=== PATIENT | female | born 1980 | race Caucasian/White ===

== ENCOUNTER 2016-12-24 06:25 | Day surgery (SDC) | payer OTHER ==
[2016-12-24 06:45] LABS: NEG OBC UR NEG; POS OBC UR POS
[2016-12-24] MEDS ORDERED: IV RINGERS,LACTATED 1000ML 1,000 ML IV SCH ×2 (06:45→09:37)
[2016-12-24] MEDS ORDERED: BUPIVACAINE-EPI 0.25%-1:200000 50 ML VIAL. ONE (07:19)
[2016-12-24] MEDS ORDERED: MIDAZOLAM HCL/PF 2 MG/2 ML VIAL. ONE (07:37)
[2016-12-24] MEDS ORDERED: FENTANYL PF 250 MCG/5 ML VIAL. ONE (07:38)
[2016-12-24] MEDS ORDERED: LIDOCAINE 2% 100 MG/5 ML SYRINGE. ONE (07:38)
[2016-12-24] MEDS ORDERED: PROPOFOL 20 ML IV ONE (07:38)
[2016-12-24] MEDS ORDERED: ONDANSETRON PF 4 MG/2 ML VIAL. ONE (07:38)
[2016-12-24] MEDS ORDERED: ROCURONIUM 50 MG/5 ML VIAL. ONE (07:38)
[2016-12-24] MEDS ORDERED: DEXAMETHASONE SOD PHOS 20 MG/5 ML VIAL. ONE (07:38)
[2016-12-24] MEDS ORDERED: ACETAMINOPHEN INTRAVENOUS 100 ML IV ONE (07:58)
[2016-12-24] MEDS ORDERED: DIPHENHYDRAMINE 50 MG/ML VIAL. ONE (08:01)
[2016-12-24] MEDS ORDERED: KETOROLAC 60 MG/2 ML INJ FOR OR. ONE (08:34)
[2016-12-24] MEDS ORDERED: NEOSTIGMINE METHYLSULFATE 5 MG/5 ML SYRINGE. ONE (09:00)
[2016-12-24] MEDS ORDERED: GLYCOPYRROLATE 1 MG/5 ML VIAL. ONE (09:00)
[2016-12-24] MEDS ORDERED: SEVOFLURANE 61 TO 120 MINUTES. IH ONE (09:09)
[2016-12-24] MEDS ORDERED: FENTANYL PF 100 MCG/2 ML VIAL. ONE ×2 (09:14→09:23)
[2016-12-24] MEDS ORDERED: DIPHENHYDRAMINE HCL 25 MG CAPSULE PO PRN (09:15)
[2016-12-24] MEDS ORDERED: DIPHENHYDRAMINE 50 MG/ML VIAL IV PRN (09:15)
[2016-12-24] MEDS ORDERED: HYDROCODONE/APAP 5/325MG TABLET. PO PRN (09:15)
[2016-12-24] MEDS ORDERED: MAG HYDROX/ALUMINUM HYD/SIMETH 30 ML ORAL.SUSP PO PRN (09:15)
[2016-12-24] MEDS ORDERED: CALCIUM CARBONATE 500 MG TAB.CHEW PO PRN (09:15)
[2016-12-24] MEDS ORDERED: SIMETHICONE 80 MG TAB.CHEW PO PRN (09:15)
[2016-12-24] MEDS ORDERED: 0.9 % SODIUM CHLORIDE 10 ML DISP.SYRIN. IV PRN (09:15)
[2016-12-24] MEDS ORDERED: NALOXONE 0.4 MG/ML VIAL. IV PRN (09:15)
[2016-12-24] MEDS: FENTANYL PF 100 MCG/2 ML VIAL. IV PRN ×4 (09:16→09:44)
--- NOTE | 2016-12-24 09:21 | PDOC ---
BRIEF OPERATIVE NOTE Date: Dec 24, 2016 Pre-Op Diagnosis pelvic pain and right ovarian cyst Post-Op Diagnosis endometriosis stage 3 with mild left sided adhesive disease and small left ovarian cyst Procedure Performed operative laparoscopy, vapo endometriosis, lysis of adhesions and drainage of small left ovarian cyst Surgeon Dr. Tiera Alberts Anesthesiologist see anesthesia records Anesthesia Type: General Blood Loss 10cc IV Fluid 1800cc Urine Output 350cc straight cath prior to procedure Specimens Obtained none Findings small left ovarian cyst; very obvious endometriosis right and left pelvic sidewall, under left ovary, scattered in cul de sac, small focus left US ligament and right US ligament several large spots, few on anterior bladder Complications none Additional Remarks [id number] TIERA ALBERTS MD Dec 24, 2016 09:21
[2016-12-24] MEDS ORDERED: HYDR-971 PO (09:31)
[2016-12-24] MEDS ORDERED: IBUP-1007 PO (09:33)
[2016-12-24] MEDS ORDERED: LIDOCAINE 1% 1 ML SYRINGE. ID PRN (09:45)
[2016-12-24] MEDS ORDERED: ONDANSETRON PF 4 MG/2 ML VIAL. IV PRN (09:45)
[2016-12-24] MEDS ORDERED: PROCHLORPERAZINE 10 MG/2 ML VIAL. IV PRN (09:45)
[2016-12-24] MEDS ORDERED: FENTANYL PF 100 MCG/2 ML VIAL. IV PRN (09:45)
[2016-12-24] MEDS ORDERED: MORPHINE SULFATE 2 MG/ML DISP.SYRIN. ONE (09:50)
[2016-12-24] MEDS: MORPHINE SULFATE 2 MG/ML DISP.SYRIN. IV PRN ×4 (09:52→10:23)
[2016-12-24 10:41] VITALS: BP 131/61
--- NOTE | 2016-12-24 12:32 | OP ---
DATE OF SURGERY: 12/24/2016 PREOPERATIVE DIAGNOSES: Pelvic pain and a right ovarian cyst. POSTOPERATIVE DIAGNOSES: A small left ovarian cyst, right ovarian cyst had resolved, but stage 2-3 endometriosis. She had little bit on the anterior bladder mucosa, large focus all over the right uterosacral ligament, small focus on the left uterosacral ligaments, scattered on the posterior cul-de-sac, a small amount on the left side wall, left-sided adhesion. She did have endometriosis on the left abdominal side wall and right abdominal side wall. No significant other adhesions other than these left-sided adhesions just superior to the left ovary and IP ligament, and those were taken down. PROCEDURE: Operative laparoscopy, vaporization of endometriosis, drainage of small left ovarian cyst, and lysis of left-sided adhesions. SURGEON: Tristen Alberts M.D. WARDROBE ATTENDANT: OR personnel. ANESTHESIA: General. ESTIMATED BLOOD LOSS: 10 mL. FLUIDS: 1800 mL of crystalloid. URINE OUTPUT: 350 mL straight cath prior to procedure. SPECIMENS: None. DRAINS AND TUBES: None. COMPLICATIONS: None. DESCRIPTION OF PROCEDURE: This patient was taken to the operating room where general anesthesia was placed. The patient was placed in a dorsolithotomy position in [facility]. The patient's abdomen and vagina were prepped and draped in the normal sterile fashion and a straight cath urine eliciting 350 mL of urine was done prior to starting. At this point, a bivalve speculum was placed in the patient's vagina. A single tooth tenaculum was used to grasp the anterior lip of the cervix. The Valtchev uterine manipulator was placed through the endocervical os, locked on the single tooth tenaculum, and the bivalve speculum was then removed. Top gloves were discarded and changed. Attention was turned to the abdomen where a small infraumbilical skin incision was made over the previous existing scar. A curved Bre was used to dissect through the subcuticular layer to the fascia. After white-balancing the scope and making sure everything was set, the 5-mm Visiport was used to directly enter the abdominal cavity; opening patient pressure was 3 mmHg. Carbon dioxide gas was used to then appropriately insufflate the abdominal cavity to maintain a pressure of 15 mmHg. Direct abdominal placement was confirmed via the laparoscope. The patient was placed in Trendelenburg position. A small 5-mm suprapubic port was placed under direct visualization as well. Initially, with the Maryland looking around revealed the above findings. Due to the location underneath the uterus and then the cul-de-sac and then the uterosacrals of the endometriosis, even though there was not a lot of significant scar tissue and I was able to take down the adhesions with the [place], I could not get it under the uterus without touching things. I did put in a right lower quadrant port as well, 5 mm after transilluminating the abdomen, picking an area that was clear, making a small incision and putting the 5-mm port in without difficulty atraumatically and then going in and using the LigaSure Advance to cauterize the areas in the posterior cul-de-sac and along both uterosacral ligaments, I did get some on the anterior bladder mucosa. After taking down the left side adhesions, there were some other endometrial implants superior to this that were cauterized on the left side. The right side, I found the normal appendix, just over from it, on the side wall, there were a few endometrial implants as well, those were cauterized as well. The right upper quadrant and left upper quadrant appeared grossly normal. Just the abdominal sidewalls with the few lesions that were vaporized and then the adhesions were taken down just superior to the left IP ligament. There was a small serous 1-2 cm cyst on the left ovary. This was easily cauterized with the monopolar tip on the LigaSure Advance and it was drained clear straw-colored fluid, I did place Roberto Carlos over this and Roberto Carlos over the adhesions on the left side as well. Just for good measure after irrigating and making sure everything else looked good, Roberto Carlos was placed over this. Once this was done, the suprapubic port and the right lower quadrant port were taken out under direct visualization. They were both hemostatic. Gas was released from the umbilical port. All three port sites were closed with 4-0 nylon at the level of the skin and injected with a total of 10 mL of 0.25% Marcaine with epinephrine. She was awakened from anesthesia and taken to recovery room in stable condition. TRISTEN ALBERTS MD DR: PATRICK/rah JOB#: [id number] / [id number]
== END 2016-12-24 11:09 | disposition home or self-care (01) ==
LOC: SURG 06:25
PROVIDERS: ATTEND Obstetrics & Gynecology
DX: N83.201 Unspecified ovarian cyst, right side (principal); N80.9 Endometriosis, unspecified; N73.6 Female pelvic peritoneal adhesions (postinfective); Z98.51 Tubal ligation status; Z87.39 Personal history of other diseases of the musculoskeletal system and connective tissue; Z72.89 Other problems related to lifestyle
CPT/HCPCS: 49322; 58662; 81025; C1769; J0131; J1100; J1200; J1885; J2270; J2405; J2704; J2710; J3010; J3490; J7030; J7120; J2250

== ENCOUNTER → 2019-10-18 | Outpatient (CLI) | payer OTHER ==
[~2019-10-18] MED LIST: HYDR-3164 PO; IBUP-1007 PO; OXYC-325 PO
== END | disposition home or self-care (01) ==
LOC: SPEC 14:22
PROVIDERS: ATTEND Obstetrics & Gynecology
DX: Z12.4 Encounter for screening for malignant neoplasm of cervix (principal)
CPT/HCPCS: 88175

== ENCOUNTER 2019-11-01 06:55 | Day surgery (SDC) | payer OTHER ==
[~2019-11-01 06:55] MED LIST changes: -OXYC-325 PO
[2019-11-01] MEDS ORDERED: LIDOCAINE 1% PF 2 ML VIAL. ID PRN (07:00)
[2019-11-01] MEDS ORDERED: ONDANSETRON PF 4 MG/2 ML VIAL. IV PRN (07:00)
[2019-11-01] MEDS ORDERED: fentaNYL PF VIAL 100 MCG/2 ML VIAL IV PRN (07:00)
[2019-11-01] MEDS: IV RINGERS,LACTATED 1000ML 1,000 ML IV SCH ×2 (07:24→11:01)
[2019-11-01] MEDS ORDERED: LIDOCAINE 2% PF 5 ML VIAL. ONE (07:56)
[2019-11-01] MEDS ORDERED: DEXAMETHASONE SOD PHOS 4 MG/ML VIAL ONE (07:56)
[2019-11-01] MEDS ORDERED: PROPOFOL 20 ML IV ONE (07:56)
[2019-11-01] MEDS ORDERED: ROCURONIUM 50 MG/5 ML VIAL. ONE (07:56)
[2019-11-01] MEDS ORDERED: MIDAZOLAM HCL/PF 2 MG/2 ML VIAL. ONE (07:56)
[2019-11-01] MEDS ORDERED: ONDANSETRON PF 4 MG/2 ML VIAL. ONE (07:56)
[2019-11-01] MEDS ORDERED: fentaNYL PF VIAL 100 MCG/2 ML VIAL ONE (07:56)
[2019-11-01] MEDS ORDERED: BUPIVACAINE-EPI 0.25%-1:200000 MPF 30 ML VIAL. ONE (08:19)
[2019-11-01] MEDS ORDERED: MINERAL OIL/PETROLATUM,WHITE OPHTH OINT 3.5GM TUBE. ONE (09:20)
[2019-11-01] MEDS ORDERED: FAMOTIDINE 20 MG/2 ML VIAL ONE (09:26)
[2019-11-01] MEDS ORDERED: GLYCOPYRROLATE 1 MG/5 ML VIAL. ONE (10:01)
[2019-11-01] MEDS ORDERED: NEOSTIGMINE METHYLSULFATE 5 MG/5 ML SYRINGE. ONE (10:41)
[2019-11-01] MEDS ORDERED: SEVOFLURANE 61 TO 120 MINUTES. IH ONE (10:42)
--- NOTE | 2019-11-01 11:02 | PDOC ---
BRIEF OPERATIVE NOTE Date: Nov 01, 2019 Pre-Op Diagnosis pelvic pain, known endometriosis and menorrhagia Post-Op Diagnosis same plus bilateral ovarian cysts Procedure Performed operative scope, vapo endometriosis, drainage left ovarian cyst, right ovarian cystectomy, diag hysteroscopy and novasure endometrial ablation Surgeon Dr. Tiera Alberts Anesthesiologist dr. Arriaga Anesthesia Type: General Blood Loss 50 IV Fluid 800cc Urine Output straight cath prior Specimens Obtained right ovarian cyst wall Findings bilateral ovarian cysts, endo in post cul de sac, mildly enlarged uterus with possible adenomyosis, uterus sounded to 8cm, normal RUQ, grossly normal appendix novasure functional length 5, width 4.5, time 98sec Complications none Operative Note [id number] TIERA ALBERTS MD Nov 01, 2019 11:02
[2019-11-01] MEDS ORDERED: oxyCODONE/APAP 5/325 1 TAB TABLET PO PRN ×2 (11:15)
[2019-11-01] MEDS ORDERED: diphenhydrAMINE HCL 25 MG CAPSULE PO PRN (11:15)
[2019-11-01] MEDS ORDERED: NALOXONE 0.4 MG/ML VIAL. IV PRN (11:15)
[2019-11-01] MEDS ORDERED: SIMETHICONE 80 MG TAB.CHEW PO PRN (11:15)
[2019-11-01] MEDS ORDERED: 0.9 % SODIUM CHLORIDE 10 ML DISP.SYRIN. IV PRN (11:15)
[2019-11-01] MEDS ORDERED: MAG HYDROX/ALUMINUM HYD/SIMETH 30 ML ORAL.SUSP PO PRN (11:15)
[2019-11-01] MEDS ORDERED: CALCIUM CARBONATE 500 MG TAB.CHEW PO PRN (11:15)
[2019-11-01] MEDS ORDERED: diphenhydrAMINE 50 MG/ML VIAL IV PRN (11:15)
--- NOTE | 2019-11-01 11:24 | OP ---
DATE OF SURGERY: 11/01/2019 PREOPERATIVE DIAGNOSES: Pelvic pain, known endometriosis, and menorrhagia. POSTOPERATIVE DIAGNOSES: Pelvic pain, known endometriosis, and menorrhagia with bilateral ovarian cysts. PROCEDURES: Operative laparoscopy, vaporization of endometriosis, drainage of left ovarian cyst, right ovarian cystectomy, diagnostic hysteroscopy, and NovaSure endometrial ablation. SURGEON: Tristen Alberts MD BATCH TRUCKER: OR personnel. ANESTHESIOLOGIST: Carlos Alberto Arriaga MD ANESTHESIA: General. ESTIMATED BLOOD LOSS: 50 mL. URINE OUTPUT: Straight cathed prior to procedure. IV FLUIDS: 800 mL of crystalloid. SPECIMEN: Right ovarian cyst wall. FINDINGS: Bilateral ovarian cysts, endometriosis on the posterior cul-de-sac, mildly enlarged uterus, and possible adenomyosis. Uterus is sounded to 8 cm. Grossly normal right upper quadrant and appendix. NovaSure functional length was set at 5 and width settled at 4.5. Time was 98 seconds for the ablation. COMPLICATIONS: None. DESCRIPTION OF PROCEDURE: This patient was taken to the operating room where general anesthesia was placed. The patient was placed in a dorsal lithotomy position in [facility]. The patient's abdomen and vagina were both prepped and draped in the normal sterile fashion, and a straight cath urine had been done prior to my arrival. Upon my arrival, a timeout was performed. Once everyone agreed, a bivalve open side arm speculum was placed in the patient's vagina. A single-tooth tenaculum was used to grasp the anterior lip of the cervix. The Hegar dilators were used to dilate up to a 9 mm. She sounded to 8 cm and the Valtchev uterine manipulator was placed through the endocervical os, locked on the single tooth tenaculum, and the bivalve speculum was then removed. Top gloves were discarded and changed. Attention was then turned to the abdomen where a small infraumbilical skin incision was made over the existing scar. Curved Bre was used to dissect through the subcuticular layer to the fascia. The 5 mm Visiport was used to directly into the abdominal cavity. Opening patient pressure was 4-5 mmHg. Carbon dioxide gas was used to appropriately insufflate the abdominal cavity to maintain a pressure of 15 mmHg. The patient was placed in Trendelenburg position. A 5 mm suprapubic port was made over an existing scar as well and placed in. 4-5 mL of air was placed in this trocar cuff. The camera was moved to look at the umbilical port. There was some periumbilical fat hanging down, but otherwise the trocar was in a good spot and that balloon was insufflated as well. Look above revealed all the above findings. I did end up placing a right lower quadrant port over an existing scar as well, finding an area clear of any vasculature transilluminating the abdominal wall, making a small incision and placing the port in, and insufflating that trocar cuff with 4-5 mL of air as well. This was so I could manipulate the uterus, elevate both ovaries, drain the cyst from the left, and do the right ovarian cystectomy using the monopolar hook on the LigaSure to drain the left and then make the incision in the right and then using the [place] to peel it out. Once this was done, the uterus was elevated. In the posterior cul-de-sac, the 2 or 3 areas that were in there were ablated with the monopolar hook as well. I believe 4 areas were cauterized in the posterior cul-de-sac just high into the uterus and then in the posterior cul-de-sac. Once this was done, the right and left pelvic guo were clear. The right upper quadrant was grossly normal. The appendix was grossly normal. The omentum over the bowel appeared grossly normal. So, irrigation was done. She had some bleeding from the right tubal area where the right tube was elevated and used for countertraction to hold it to peel off that right ovarian cyst wall. So, I did cauterize this with excellent results. Roberto Carlos was placed over the right ovarian cyst wall and the right tube with excellent results. The air was taken out of all three trocar sites. Once it was completed, irrigation was copiously done to make sure it was clear. Once it was assured to be clear, the right lower quadrant and suprapubic port were removed under direct visualization. Gas was released from the umbilical port. All three port sites were closed with 4-0 nylon at the skin and injected with 12 mL of local 0.25% Marcaine with epinephrine. Attention was then turned vaginally where the Valtchev was removed. A weighted speculum was placed in the patient's vagina. The diagnostic hysteroscopy was performed. Both tubal ostia were seen. The fundus was clear. There was some tissue on the anterior wall and some filmy tissue in the lower uterine segment, but nothing terrible. So, at this point, the NovaSure was obtained. The functional length was set at 5, the width settled at 4.5, and K-Y was placed around the cuff. It was securely placed over the cervix. The device was enabled. The cavity assessment check was performed. Once it passed, it went straight into the ablation which lasted 98 seconds. Once this was done, the device was removed. The tenaculum was removed. There was no active bleeding. So, the weighted speculum was removed and the procedure was ended. The patient was awakened from anesthesia and brought to recovery room in stable condition. TRISTEN ALBERTS MD DR: PATRICK/rah JOB#: [id number] / [id number]
[2019-11-01] MEDS: PROCHLORPERAZINE 10 MG/2 ML VIAL. IV PRN ×2 (11:32→11:46)
[2019-11-01] MEDS: fentaNYL PF VIAL 100 MCG/2 ML VIAL IV PRN ×3 (11:32→13:01)
[2019-11-01] MEDS ORDERED: OXYC-325 PO (11:37)
[2019-11-01 13:02] VITALS: BP 144/76
--- NOTE | 2019-11-03 09:07 | PATHOLOGY ---
[facility] Accession Number: [id number] . 01 Material submitted: . ovary - RIGHT OVARIAN CYST WALL. Modifiers: right . 01 Clinical history: . endometriosis, right ovarian cyst . 02 Diagnosis: Segments of ovarian tissue, right ovarian cyst wall: - Hemorrhagic luteinized cyst. . (JP:mm; 11/02/2019) [facility] 11/02/2019 1549 Local . 02 Comment: There is no evidence of endometriosis. There is no evidence of malignancy. . (JPM:mm; 11/02/2019) . 02 Electronically signed: . Michel Diamond MD, Pathologist NPI- [id number] . 01 Gross description: . The specimen is received in formalin, labeled "Aracelis Contreras", "right ovarian cyst wall". Received are multiple fragments of membranous, pale solis-thompson cystic tissue, ranging in size from 0.4 to 2.3 cm. No papillary areas are identified. The specimen is entirely submitted in cassette A1 and A2. ([facility]; 11/01/2019) [facility] 11/02/2019 1546 Local . 02 Pathologist provided ICD-10: N83.201 . 02 CPT . 082483 Specimen Comment: A courtesy copy of this report has been sent to [phone], [phone] Specimen Comment: [id number] Specimen Comment: Report sent to and Performed at: 01 [facility] [address], [place] [id number] MD Les Miller MD Phone: [phone] Performed at: 02 [facility] [address], [place] [id number] MD Michel Diamond MD Phone: [phone]
== END 2019-11-01 13:30 | disposition home or self-care (01) ==
LOC: SURG 06:55
PROVIDERS: ATTEND Obstetrics & Gynecology
DX: N92.0 Excessive and frequent menstruation with regular cycle (principal); N80.0 Endometriosis of uterus; N83.202 Unspecified ovarian cyst, left side; N83.201 Unspecified ovarian cyst, right side; Z72.89 Other problems related to lifestyle; Z98.51 Tubal ligation status
CPT/HCPCS: 58563; 58662; 81025; 88305; A7015; J0780; J1100; J2001; J2250; J2405; J2704; J2710; J3010; J3490; J7030

== ENCOUNTER → 2020-10-29 | Day surgery (SDC) | payer OTHER ==
[~2020-10-29] VITALS: Ht 162.6 cm; Wt 89.8 kg
[~2020-10-29] MED LIST changes: +BUPIVACAINE MPF 0.5% 30 ML VIAL. ONE; +DEXAMETHASONE SOD PHOS 4 MG/ML VIAL ONE; +HYDROmorphone 2 MG/ML VIAL ONE; +IV RINGERS,LACTATED 1000ML 1,000 ML IV SCH; +MIDAZOLAM HCL/PF 2 MG/2 ML VIAL. ONE; +MORPHINE SULFATE 2 MG/ML VIAL. ONE; +ONDANSETRON PF 4 MG/2 ML VIAL. ONE; +OXYC-325 PO; +OXYC1TAB19 PO; +PHEN37.53 PO; +PROCHLORPERAZINE 10 MG/2 ML VIAL. IVP PRN; +PROCHLORPERAZINE 10 MG/2 ML VIAL. ONE; +ROPIVacaine 0.5% PF 20 ML VIAL. ONE; +ePHEDrine PF IN SALINE 50 MG/10 ML SYRINGE. IV ONE; +fentaNYL PF VIAL 100 MCG/2 ML VIAL IVP PRN; +fentaNYL PF VIAL 100 MCG/2 ML VIAL ONE; +oxyCODONE/APAP 7.5/325 1 TAB TABLET PO ONE
--- NOTE | 2020-10-29 06:52 | DISCH ---
DISCHARGE INSTRUCTIONS Condition on Discharge Condition on Discharge: Stable Activity After Discharge Activity Instructions for Disc: Other, see below (Fine motor use of left hand permitted such as eating writing typing and gentle grasp) Lifting Instructions after Dis: No heavy lifting, No pulling or pushing Weight Bearing Status after Di: Non weight bearing Diet after Discharge Diet after Discharge: Regular Wound Incision Care Wound/Incision Care: Ice to area for comfort, Keep wound elevated, Do not change dressing (Keep dressing clean dry intact, call if wet) Contacting the DRSona after DC Call your doctor for: Concerns you may have Follow-Up Follow up with: Dr. Perez 1 week ROSANGELA PEREZ MD Oct 29, 2020 06:52
[2020-10-29 07:22] LABS: CALCIUM 8.9 mg/dL (8.5-10.1); CREATININE 0.9 mg/dL (0.6-1.0); GFR 69.7; POTASSIUM 3.9 mmol/L (3.5-5.1)
[2020-10-29 07:46] LABS: BASO % 0 % (0-3); EOS # 0.1 x10^3/uL (0.0-0.7); EOS % 1 % (0-3); HEMATOCRIT 38.2 % (36.0-47.0); HEMOGLOBIN 12.9 g/dL (12.0-15.5); LYMPH # 1.6 x10^3/uL (1.0-4.8); LYMPH % 26 % (24-48); MEAN CORPUSCULAR HEMOGLOBIN 30 pg (25-35); MEAN CORPUSCULAR HGB CONC 34 g/dL (31-37); MEAN CORPUSCULAR VOLUME 90 fL (79-100); MONO # 0.4 x10^3/uL (0.0-1.1); MONO % 7 % (0-9); NEUT # 4.1 x10^3/uL (1.8-7.7); NEUT % 65 % (31-73); PLATELET COUNT 179 x10^3/uL (140-400); RED BLOOD COUNT 4.23 x10^6/uL (3.50-5.40); RED CELL DISTRIBUTION WIDTH 13.6 % (11.5-14.5); WHITE BLOOD COUNT 6.3 x10^3/uL (4.0-11.0)
[2020-10-29] MEDS: fentaNYL PF VIAL 100 MCG/2 ML VIAL IVP PRN ×2 (08:45→08:50)
[2020-10-29] MEDS: MORPHINE SULFATE 2 MG/ML VIAL. IVP PRN ×2 (08:50→09:00)
[2020-10-29] MEDS: HYDROmorphone 2 MG/ML VIAL IVP PRN ×5 (09:05→10:03)
[2020-10-29 10:25] VITALS: BP 132/68
--- NOTE | 2020-10-29 16:14 | PDOC4 ---
Operative Note Operative Note Date of surgery 10/29/2020 Preoperative diagnosis: Displaced intra-articular left distal radius fracture Postoperative diagnosis: Same Operative procedure: Operative reduction internal fixation 2 part intra- articular left distal radius fracture with locking plate and screw fixation Surgeon: Ana Adobe Maker: Jaguar lion Anesthesia: General Estimated blood loss: 15 cc Complications: None Operative indications: Please see my orthopedic clinic note of yesterday for detailed operative indications and note that we again covered risks benefits postoperative course of possible infection nonhealing nerve or blood vessel damage stiffness even under the best of circumstances and the rationale to restore anatomically as possible the alignment to minimize stiffness and degenerative change. She agreed to proceed with operative valuation and treatment Operative text: Patient was identified procedure verified patient placed in the supine position on the operating table. After adequate amounts of general anesthesia were administered the left upper extremity was prepped and draped in standard sterile fashion with an upper arm tourniquet. After timeout was performed patient procedure identified and verified the left upper extremity was exsanguinated by Esmarch bandage tourniquet inflated to 300 mmHg and a standard volar Ariel approach was carried out to the distal radius subperiosteal dissection was carried out and reduction carried out under fluoroscopic guidance and a standard short Mike DVR cross lock plate was placed with a nonlocking screw in the sliding hole and minute adjustment was then carried out under fluoroscopic guidance and distal locking screws were each placed under fluoro scopic guidance with excellent alignment at the joint surface and proximal locking screws were then placed along with an additional nonlocking screw in the shaft as well as a locking screw in the shaft. Excellent reduction was noted at the joint surface and muslim of volar tilt to near normal. Hardware placement noted under multiple fluoroscopic guidance as well. Thorough i rrigation carried out normal saline solution closure accomplished with buried Vicryl suture subcuticular Monocryl Steri-Strips and Mastisol and a well-padded small volar splint was placed. Fingers were noted to be warm pink on deflation of tourniquet patient was returned to recovery room stable condition having tolerated the procedure well. Jaguar Downey assistant professor of music was present for the patient positioning prepping draping retraction closure dressings and splint ROSANGELA ROB MD Oct 29, 2020 16:14
== END | disposition home or self-care (01) ==
LOC: SURG 09:54
PROVIDERS: ATTEND Orthopaedic Surgery
DX: S52.572A Other intraarticular fracture of lower end of left radius, initial encounter for closed fracture (principal); Z79.899 Other long term (current) drug therapy; Z98.51 Tubal ligation status; Z98.890 Other specified postprocedural states; Z87.891 Personal history of nicotine dependence; Z20.822 Contact with and (suspected) exposure to COVID-19; Z88.2 Allergy status to sulfonamides; Z72.89 Other problems related to lifestyle; Z88.8 Allergy status to other drugs, medicaments and biological substances; X58.XXXA Exposure to other specified factors, initial encounter; Y93.89 Activity, other specified; Y92.89 Other specified places as the place of occurrence of the external cause; Y99.8 Other external cause status
CPT/HCPCS: 25608; 36415; 80048; 81025; 85025; 87426; C1713; C9803; J0690; J0780; J1100; J1170; J2250; J2270; J2405; J2795; J3010; J3490; J7120; U0003; 76000

== ENCOUNTER → 2020-12-06 | Outpatient (CLI) | payer OTHER ==
[2020-10-29 10:25] VITALS: BP 132/68
[~2020-12-06] MED LIST changes: -BUPIVACAINE MPF 0.5% 30 ML VIAL. ONE; -DEXAMETHASONE SOD PHOS 4 MG/ML VIAL ONE; +GADOTERATE 5 MMOL/10ML VIAL. INT ART ONE; -HYDROmorphone 2 MG/ML VIAL ONE; +IOHEXOL 300 MG/ML 50 ML VIAL. INT ART ONE; -IV RINGERS,LACTATED 1000ML 1,000 ML IV SCH; +LIDOCAINE 1% Multi-Dose 20 ML VIAL. ID ONE; -MIDAZOLAM HCL/PF 2 MG/2 ML VIAL. ONE; -MORPHINE SULFATE 2 MG/ML VIAL. ONE; -ONDANSETRON PF 4 MG/2 ML VIAL. ONE; -PROCHLORPERAZINE 10 MG/2 ML VIAL. IVP PRN; -PROCHLORPERAZINE 10 MG/2 ML VIAL. ONE; -ROPIVacaine 0.5% PF 20 ML VIAL. ONE; -ePHEDrine PF IN SALINE 50 MG/10 ML SYRINGE. IV ONE; -fentaNYL PF VIAL 100 MCG/2 ML VIAL IVP PRN; -fentaNYL PF VIAL 100 MCG/2 ML VIAL ONE; -oxyCODONE/APAP 7.5/325 1 TAB TABLET PO ONE
--- NOTE | 2020-12-06 15:54 | KCIC ---
Examination: MRI right shoulder arthrogram HISTORY: History of shoulder pain, limited range of motion COMPARISON: None TECHNIQUE: Multiplanar, multisequence MR imaging of the right knee were performed after arthrogram in jection FINDINGS: The long head of the biceps tendon within the bicipital groove. The attachment of the long head the b iceps tendon to the superior labral anchor grossly appears intact. The subscapularis tendon, supraspinatus, infraspinatus tendon grossly appears intact. Mild increased signal identified in the rotator cuff likely tendinosis. The muscle bulk grossly appears unremarkable. The acromion is type II. Mild joint space loss glenohum eral joint, acromioclavicular joint. Mild superficial fraying of cartilage identified in the glenohum eral joint. The visualized labrum grossly appears unremarkable. Small osteophyte formation identified in the glenohumeral joint likely degenerative changes. The labrum somewhat thin IMPRESSION: 1. Mild tendinosis rotator cuff. 2. Mild degenerative changes glenohumeral joint, acromioclavicular joint. Electronically signed by: Kris Ambriz MD (12/06/2020 3:52 PM) [id number]
--- NOTE | 2020-12-06 17:23 | KCIC ---
Examination: Right Shoulder Arthrogram: Indications: Right shoulder pain. Procedure: Risks, benefits and complications including bleeding, infection, blood vessel damage or j oint infection were discussed with the patient. Questions were answered and consent form signed. The patient was placed supine on the fluoroscopy table with the shoulder slightly externally rotated. Bony landmarks were used to plan for fluoroscopic injection. The patient was carefully prepped and draped in a sterile fashion. Using fluoroscopic guidance, local anesthetic and a 22 gauge needle th e joint space was entered. Intra-articular location was confirmed as approximately 12cc of a mixture of 5 mL of lidocaine, 5 mL iodinated contrast, 10 mL of saline and 0.1 mL clariscan was injected to d istend the shoulder joint. The procedure was well tolerated and the patient was sent to MRI. The patient was sent home in good condition with instructions to contact referring physician if there develops signs or symptoms of com plications, such as pain, bleeding, fever or chills. Impression: Status post fluoroscopic guided arthrogram in preparation for MRI with contrast. Electronically signed by: Kris Ambriz MD (12/06/2020 5:21 PM) [id number]
== END | disposition home or self-care (01) ==
LOC: KCIC 12:44
PROVIDERS: ATTEND Physician Assistant Medical
DX: M25.511 Pain in right shoulder (principal); Z98.51 Tubal ligation status; Z98.890 Other specified postprocedural states; Z79.899 Other long term (current) drug therapy; Z87.891 Personal history of nicotine dependence; Z72.89 Other problems related to lifestyle; Z88.8 Allergy status to other drugs, medicaments and biological substances
CPT/HCPCS: 23350; 73219; 77002; A9575; J3490; Q9967; 73040

== ENCOUNTER 2021-11-11 09:35 | Day surgery (SDC) | payer OTHER ==
[~2021-11-11] VITALS: Ht 162.6 cm; Wt 86.0 kg
[~2021-11-11 09:35] MED LIST changes: -GADOTERATE 5 MMOL/10ML VIAL. INT ART ONE; -IOHEXOL 300 MG/ML 50 ML VIAL. INT ART ONE; +IV RINGERS,LACTATED 1000ML 1,000 ML IV SCH; -LIDOCAINE 1% Multi-Dose 20 ML VIAL. ID ONE; +MORPHINE SULFATE 2 MG/ML INJ. IVP PRN; +PROCHLORPERAZINE 10 MG/2 ML VIAL. IVP PRN; +fentaNYL PF VIAL 100 MCG/2 ML VIAL IVP PRN
[2021-11-11 10:08] VITALS: BP 165/103
[2021-11-11] MEDS ORDERED: HYDR-2761 PO (10:17)
--- NOTE | 2021-11-11 10:18 | DISCH ---
DISCHARGE INSTRUCTIONS Condition on Discharge Condition on Discharge: Stable Activity After Discharge Activity Instructions for Disc: Other, see below Other activity instructions: 2 to 3 pound lifting restriction, okay to use arm and hand for light activi Lifting Instructions after Dis: No heavy lifting, No pulling or pushing Weight Bearing Status after Di: Partial weight bearing, Non weight bearing Diet after Discharge Diet after Discharge: Regular Wound Incision Care Wound/Incision Care: Ice to area for comfort, Keep wound elevated, Do not change dressing Contacting the DRSona after DC Call your doctor for: Concerns you may have Follow-Up Follow up with: Antoine in 2 weeks REGGIE RICHARDSON II, MD Nov 11, 2021 10:18
--- NOTE | 2021-11-11 10:22 | PDOC4 ---
Operative Note Operative Note Date of procedure: 11/11/2021 Surgeon: Geoffrey Richardson Team Coordinator: Timothy Rizo Preoperative diagnosis: Pain after ORIF left distal radius Postoperative diagnosis: Same Procedure performed: Hardware removal left wrist Anesthesia: General Findings: No purulence, no gross abnormalities Complications: None Tourniquet time: Less than an hour Reason for procedure: Patient is a pleasant 41-year-old female who underwent ORIF left distal radius about a year ago. Since that time and her initial recovery she has developed pain at her wrist radiating into her fingers that t ends to be intermittent. She has a history of reacting to different jewelry's and given my work-up, negative EMG results, her and I did discuss that since she has essentially tried all forms of conservative therapies that hardware removal may benefit her. She was willing to proceed and we had a discussion of the risks, benefits, and alternatives. Description of procedure: Patient was greeted in the preoperative area where the correct extremity was verified and marked. She was taken to the operative suite and antibiotics were started as she was brought back. Once in the operating room, she was transferred gently supine to the operating table and secured to the bed with all pressure points padded. The hand table was attached to the OR table. Nonsterile tourniquet was secured in place to her left upper arm. Left upper extremity was then prepped and draped in the usual sterile fashion we conducted our standard preoperative timeout. After this we exsanguinated the extremity with an Esmarch and insufflated tourniquet to 250 mmHg. I then began the procedure by incising skin through her prior incision using a scalpel. Bipolar cautery was used for hemostasis. Identified the prior plain and bluntly spread down to the distal radius. I identified the plate and used a Erie elevator to remove the overlying fibrotic tissue, some of the pronator quadratus had healed, but not much. After fully exposing the screw heads and plate I sequentially remove the screws without complication and then was able to gently deliver the plate from the operative field. I used a rongeur to smooth out the rough areas where there been a small amount of bony overgrowth. I took a C arm image to confirm plate removal. After this, I thoroughly irrigated the operative field and let tourniquet down to ensure hemostasis of been achieved. The plate was sent off. After this, subcutaneous tissue was closed with inv erted interrupted 2-0 Vicryl followed by 3-0 nylon in a mattress fashion. Local anesthetic was injected in the periincisional soft tissues. All counts correct to wound x2 prior to wound closure. No complications. At the conclusion she was awake from anesthesia and transferred gently supine to the recovery cart and taken to PACU in stable and extubated condition. Postoperative plan is to discharge her home. Activity instructions were discussed with her and family as well as given in written form. I will see her back in 2 weeks, sooner should a problem arise GEOFFREY RICHARDSON II, MD Nov 11, 2021 10:22
[2021-11-11] MEDS ORDERED: ONDANSETRON PF 4 MG/2 ML VIAL. ONE (12:00)
[2021-11-11] MEDS ORDERED: DEXAMETHASONE SOD PHOS 4 MG/ML VIAL ONE (12:00)
[2021-11-11] MEDS ORDERED: SEVOFLURANE 16 TO 30 MINUTES. IH ONE (12:00)
[2021-11-11] MEDS ORDERED: LIDOCAINE 2% PF 5 ML VIAL. ONE (12:00)
[2021-11-11] MEDS ORDERED: PROPOFOL 10 MG/ML (20ML) VIAL. IV ONE ×2 (12:00→12:57)
[2021-11-11] MEDS ORDERED: fentaNYL PF VIAL 100 MCG/2 ML VIAL ONE ×2 (12:01→13:37)
[2021-11-11] MEDS ORDERED: MIDAZOLAM HCL/PF 2 MG/2 ML VIAL. ONE (12:01)
[2021-11-11] MEDS ORDERED: LIDOCAINE 1% Multi-Dose 20 ML VIAL. ONE (12:26)
[2021-11-11] MEDS ORDERED: BUPIVACAINE MPF 0.5% 30 ML VIAL. ONE (12:26)
[2021-11-11] MEDS ORDERED: KETOROLAC 30 MG/ML VIAL. ONE (13:13)
[2021-11-11] MEDS: fentaNYL PF VIAL 100 MCG/2 ML VIAL IVP PRN ×2 (13:40→13:48)
[2021-11-11] MEDS ORDERED: HYDROmorphone 2 MG/ML INJ. ONE (13:55)
[2021-11-11] MEDS: HYDROmorphone 2 MG/ML INJ. IVP PRN ×3 (13:57→15:08)
[2021-11-11] MEDS ORDERED: diphenhydrAMINE 50 MG/ML VIAL IV ONE (14:30)
[2021-11-11] MEDS ORDERED: HYDROcodone/APAP 5/325MG 1 TAB TABLET ONE (14:48)
[2021-11-11 14:50] VITALS: BP 155/95
[2021-11-11] MEDS ORDERED: HYDROcodone/APAP 5/325MG 1 TAB TABLET PO ONE (15:00)
== END 2021-11-11 15:20 | disposition home or self-care (01) ==
LOC: SURG 09:35
PROVIDERS: ATTEND Orthopaedic Surgery Sports Medicine
DX: M25.532 Pain in left wrist (principal); Z87.891 Personal history of nicotine dependence; Z98.51 Tubal ligation status; Z98.890 Other specified postprocedural states; Z79.899 Other long term (current) drug therapy; Z88.8 Allergy status to other drugs, medicaments and biological substances
CPT/HCPCS: 20680; 81025; A4930; A6402; A6449; J0690; J1100; J1170; J1200; J1885; J2405; J2704; J3010; J3490; 76000; J2250